=== PATIENT | male | born 1940 | race Hispanic/Latino ===

== ENCOUNTER 2023-07-23 08:56 | Outpatient (CLI) | payer MEDICARE, OTHER, SELFPAY ==
--- NOTE | 2023-08-06 20:42 | WPDSLEEPSTUD ---
Sleep Study Date of Study: 07/23/23 Ordering Provider: Francisco Prado, LINDER[employer] MACHINE OPERATOR Interpreting Physician: Radha Nguyen, DO Sleep Study Type: CPAP Titration Height: 1.73 m Weight: 83.007 kg Body Mass Index: 27.8 Neck Circumference (inches): 16 [place]: 9 Reason for Sleep Study Daytime hypersomnia despite CPAP compliance Sleep History The patient is an 83-year-old male with LE on CPAP that had a sleep study ordered his ENT for daytime hypersomnia despite CPAP compliance. The patient occasionally awakens from sleep short of breath. He denies awakening at night with heartburn, belching or cough. He frequently snores and is frequently loud enough that others complain. He occasionally has trouble sleeping when he has a cold. He occasionally wakes up gasping for air throughout the night. He frequently has breathing problems at night observed by himself or others. He denies sweating excessively at night. He rarely has heart palpitations or irregular heartbeats during the night. He frequently falls asleep during the day but never while driving. He denies sleep paralysis and cataplexy. He denies having trouble at school or work due to sleepiness. He occasionally experiences vivid dreamlike scenes upon awakening or falling asleep. He denies feeling afraid of going to sleep. He occasionally has nightmares. He occasionally remembers his dreams. He frequently has thoughts racing through his mind. He occasionally feels sad, depressed and anxious. He occasionally has muscular tension. He occasionally notices parts of his body jerk. He occasionally kicks during the night. He occasionally has crawling and aching feelings in his legs and occasionally has leg pain during the night. He occasionally grinds his teeth during sleep but never awakens with morning jaw pain. He is occasionally bothered by pain during the day but never awakened by pain during the night. He occasionally wakes up feeling stiff in the morning. He frequently wakes up with sore or achy muscles. He occasionally wakes up with pain in the neck, spine and other joints. He goes to bed at 10:00 p.m. on both weekdays and weekends. It takes him 10 minutes to fall asleep. He wakes up 2-3 times throughout the night for unknown reasons and is able to fall back asleep within 10 minutes. He wakes up at 7:00 a.m. on both weekdays and weekends. He typically gets 8 to hours of sleep per night. He will stay in bed for 5 minutes after waking up in the morning. He currently lives with his . He denies consuming any caffeinated beverages within 2 hours of bedtime. He denies engaging in physical exercise before bedtime. He will watch television before falling asleep. He will take naps in the afternoon or the evening but they are not refreshing. He consumes 1 caffeinated cup per day. He quit smoking 22 years ago. He consumes 1-2 alcoholic beverages per week. He denies recreational drug use. Sleep Procedure A full night polysomnogram using the [employer] multi-channel system recorded the standard physiologic parameters including EEG, EOG, submentalis EMG, anterior tibialis EMG, EKG, body position, nasal and oral airflow using PAP device flow signal.? Respiratory parameters of chest and abdominal movements were recorded with Respiratory Inductance Plethysmography belts. Oxygen saturation was recorded by pulse oximetry. Video monitoring was also performed. Sleep stages, periodic limb movements, and EEG arousals were scored in 30 second epochs according to the criteria of the AASM Scoring Manual. The Apnea-Hypopnea Index was calculated using CMS guidelines for definition of hypopnea with 4% O2 desaturations while scoring respiratory events. Sleep Architecture The total recording time was 508.5 minutes.? The total sleep time was 327.5 minutes. Sleep latency was 27.1 minutes. REM latency was 66.5 minutes. Sleep efficiency was 64.4%. The patient had 42 awakenings for an awakening index of 7
[2023-08-07 11:39] VITALS: BMI 27.8
== END 2023-07-24 07:13 | disposition home or self-care (01) ==
LOC: ANHCSM 08:59
PROVIDERS: Visit Provider Nurse Practitioner Family
DX: G47.61 Periodic limb movement disorder (principal); G47.33 Obstructive sleep apnea (adult) (pediatric)
CPT/HCPCS: 95811